=== PATIENT | female | born 1990 | race Caucasian/White ===

== ENCOUNTER 2016-12-10 21:22 | Emergency (ER) | payer SELFPAY ==
[~2016-12-10] VITALS: Ht 152.4 cm; Wt 58.0 kg
[~2016-12-10 21:22] MED LIST: FERR240T9 PO; FOLI0.4T2 PO; PRENAT PO
[2016-12-10 21:35] VITALS: Ht 152.4 cm; Wt 58.0 kg
== END 2016-12-11 00:37 | disposition left against medical advice (07) ==
LOC: FTE 21:22
DX: Z53.21 Procedure and treatment not carried out due to patient leaving prior to being seen by health care provider (principal)